=== PATIENT | female | born 1970 | race Caucasian/White ===

== ENCOUNTER → 2016-05-27 | Outpatient (CLI) | payer OTHER ==
--- NOTE | 2016-05-27 16:26 | DX ---
Left fifth toe, 3 views History: Follow up fracture. Comparison: March 19, 2016. Findings: Subacute oblique fracture involving the base of the left fifth toe distal phalanx extending into the interphalangeal joint demonstrates callus formation, which has increased since the previous study. Mild soft tissue swelling. Impression: Healing left fifth toe distal phalanx fracture.
== END ==
LOC: BMCIMAGING 14:40
PROVIDERS: ATTEND Podiatrist Foot & Ankle Surgery
DX: S92.532D Displaced fracture of distal phalanx of left lesser toe(s), subsequent encounter for fracture with routine healing (principal)